=== PATIENT | female | born 2000 | race African-American/Black ===

== ENCOUNTER 2018-07-26 10:28 | Emergency (ER) | payer SELFPAY ==
[2018-07-26 10:48] VITALS: BP 119/73
--- NOTE | 2018-07-26 11:22 | ER Document Report ---
HPI - HPI Patient complains to provider of: Ear ringing feeling clogged Time Seen by Provider: 07/26/18 11:07 Onset: Last week Pain Level: 3 Context: She presents emergency department with complaints of feeling like her ears are clogged ringing. She denies other symptoms such as fever vomiting diarrhea. Reports she has not been swimming. She reports she used a Q-tip last week. Denies trauma denies loud music she just moved here from [place] Associated Symptoms: None Exacerbated by: Denies Relieved by: Denies Similar symptoms previously: No Recently seen / treated by doctor: No Past Medical History - General Information source: Patient Last Menstrual Period: june - Social History Smoking Status: Unknown if Ever Smoked Cigarette use (# per day): No Frequency of alcohol use: None Drug Abuse: None Occupation: unemployed Family History: None Patient has suicidal ideation: No Patient has homicidal ideation: No - Medical History Medical History: Negative Surgical Hx: Negative Vertical Provider Document - CONSTITUTIONAL Agree With Documented VS: Yes Exam Limitations: No Limitations General Appearance: WD/WN, No Apparent Distress - INFECTION CONTROL TRAVEL OUTSIDE OF THE [place] IN LAST 30 DAYS: No - HEENT HEENT: Atraumatic, Normocephalic. negative: Conjuctival Injection, Pharyngeal Exudate, Pharyngeal Erythema, Tympanic Membrane Red - Clear no earwax, Tympanic Membrane Bulging - NECK Neck: Normal Inspection, Supple. negative: Lymphadenopathy-Left, Lymphadenopathy-Right - RESPIRATORY Respiratory: Breath Sounds Normal, No Respiratory Distress - CARDIOVASCULAR Cardiovascular: Regular Rate, Regular Rhythm - GI/ABDOMEN Gastrointestinal: Abdomen Soft, Abdomen Non-Tender - MUSCULOSKELETAL/EXTREMETIES Musculoskeletal/Extremeties: MAEW, FROM - NEURO Level of Consciousness: Awake, Alert, Appropriate Motor/Sensory: No Motor Deficit - DERM Integumentary: Warm, Dry Course - Re-evaluation Re-evalutation: 07/26/18 11:26 Patient instructed on antihistamine decongestant. Patient instructed to follow- up with a primary care provider or ENT for continued symptoms. She verbalized understanding to all instructions. - Vital Signs Vital signs: Temp Pulse Resp BP Pulse Ox 98.8 F 73 16 119/73 98 07/26/18 10:47 07/26/18 10:47 07/26/18 10:47 07/26/18 10:47 07/26/18 10:47 Discharge - Discharge Clinical Impression: ear ringing, clogged ear feeling Condition: Stable Disposition: HOME, SELF-CARE Instructions: Decongestant-Antihistamine Medication ([facility]), ENT Additional Instructions: *You have been evaluated for ear irritation *Follow up with a primary care provider or ENT for continued symptoms within one week *Return to ED for worsening condition, changes, needs
== END 2018-07-26 11:45 | disposition home or self-care (01) ==
LOC: ER 10:28
DX: H93.19 Tinnitus, unspecified ear (principal)
CPT/HCPCS: 99282

== ENCOUNTER 2019-04-23 11:29 | Emergency (ER) | payer SELFPAY ==
[2019-04-23] MEDS ORDERED: LIDOCAINE 1% INJ-PF (10 MG/ML) 30 ML SDV INJ ONE (11:50)
[2019-04-23] MEDS ORDERED: CEFTRIAXONE INJ 250 MG VIAL IM ONE (11:50)
[2019-04-23] MEDS ORDERED: AZITHROMYCIN 250 MG TABLET PO ONE (11:50)
--- NOTE | 2019-04-23 11:52 | ER Document Report ---
HPI - HPI Time Seen by Provider: 04/23/19 11:46 Pain Level: 2 Notes: Patient is a 19-year-old female no significant past medical history who presents complaining of urinary burning, urgency, frequency, and possible yeast infection with vaginal itching over the past 3 days. Patient states that she has had both at the same time in the past and her symptoms feel similar. Patient states that she is open to STD testing, but has a low suspicion. Last menstrual period was 1 to 2 weeks ago. Denies drug allergies. She is able to eat and drink without difficulty. She is urinating normally. No other concerns or complaints. No other vaginal bleeding. Denies any headache, fever, neck pain, URI, sore throat, chest pain, palpitations, syncope, cough, shortness of breath, wheeze, dyspnea, abdominal pain, nausea/vomiting/diarrhea, back pain, or rash. - ROS Systems Reviewed and Negative: Yes All other systems reviewed and negative - REPRODUCTIVE Reproductive: DENIES: : Past Medical History - Social History Smoking Status: Never Smoker Family History: None Vertical Provider Document - CONSTITUTIONAL Agree With Documented VS: Yes Notes: PHYSICAL EXAMINATION: GENERAL: Well-appearing, well-nourished and in no acute distress. LUNGS: Breath sounds clear to auscultation bilaterally and equal. No wheezes rales or rhonchi. HEART: Regular rate and rhythm without murmurs, rubs, gallops. ABDOMEN: Soft, nontender, nondistended abdomen. No guarding, no rebound. Normal bowel sounds present. No CVA tenderness bilaterally. : deferred. pt declined and will self-swab. No tenderness to palp otherwise to lower pelvic. Musculoskeletal: FROM to passive/active. Strength 5+/5. Extremities: No cyanosis, clubbing, or edema b/l. Peripheral pulses 2+. Capillary refill less than 3 seconds. NEUROLOGICAL: Normal speech, normal gait. PSYCH: Normal mood, normal affect. SKIN: Warm, Dry, normal turgor, no rashes or lesions noted. - INFECTION CONTROL TRAVEL OUTSIDE OF THE [place] IN LAST 30 DAYS: No Course - Re-evaluation Re-evalutation: 04/23/19 12:45 Patient is an afebrile, well-hydrated, 19-year-old female who presents to the ED with BV and dysuria. Vitals are acceptable without any significant tachycardia, tachypnea, or hypoxia. PE is otherwise unremarkable. Pt's abd is soft and nontender. Urinalysis and hCG are unremarkable for any acute pathology. See wet mount results. Chlam/gonorrhea tests are pending. Pt received zithromax/rocephin. Patient is nontoxic-appearing is tolerating p.o. without any difficulties. No other labs or imaging warranted at this time based on H&P. Low suspicion/risk for acute appendicitis, bowel obstruction, acute cholecystitis, acute cholangitis, perforated diverticulitis, incarcerated hernia, pancreatitis, perforated ulcer, peritonitis, sepsis, pelvic inflammatory disease, ectopic , tubo-ovarian abscess, ovarian torsion, or other systemic emergent condition at this time. Patient is aware that her condition can change from initial presentation and she needs to monitor symptoms closely and seek medical attention if any acute changes. I will send her home with prescription for Flagyl. Conservative measures otherwise for symptoms. Recheck with your PCM/OBGYN in 3-5 days. Return to the ED with any worsening/concerning symptoms otherwise as reviewed in discharge. Patient is in agreement. Discharge - Discharge Clinical Impression: BV (bacterial vaginosis) Condition: Stable Disposition: HOME, SELF-CARE Instructions: Metronidazole ([facility]), Vaginosis, Bacterial ([facility]) Additional Instructions: Maintain fluid intake Proper hygienic technique Keep the skin clean Safe sexual practices with condoms everytime Tylenol/ibuprofen as needed Check in with the health department this week for further testing if warranted Your chlamydia/gonorrhea tests are pending and you will be notified if positive results; you may call in 1 day for the results as well F/u with your PCM/OBGYN in 3-5 days for a recheck Return to the ED with any development of NOLAND/fever, trouble with vision, eye redness, worsening pain, urethral discharge, urinary retention, blood in the urine, flank pain, abdominal pain, n/v, Chest Pain, shortness of breath, joint pains, trouble breathing, or any other worsening/concerning symptoms as needed otherwise. Prescriptions: Metronidazole [Flagyl] 500 mg PO BID #14 tablet Referrals: [facility] [Provider Group] - Follow up as needed
[2019-04-23 12:24] LABS: T.VAGINALIS (WET MOUNT) NO TRICHOMONAS SEEN; YEAST (WET MOUNT) NO YEAST SEEN
[2019-04-23 12:25] LABS: BACTERIA (WET MOUNT) 3+ BACTERIA SEEN; EPITHELIALS (WET MOUNT) 3+ EPITHELIALS SEEN; RBCS (WET MOUNT) 1+ RBCS SEEN; WBCS (WET MOUNT) 1+ WBCS SEEN
[2019-04-23 12:39] LABS: APPEARANCE,URINE SLIGHTLY-CLOUDY; BILIRUBIN,URINE NEGATIVE (NEGATIVE); COLOR,URINE YELLOW; GLUCOSE, URINE NEGATIVE (NEGATIVE); KETONES,URINE TRACE mg/dL (NEGATIVE); LEUKOCYTE ESTERASE,URINE NEGATIVE (NEGATIVE); NITRITE,URINE NEGATIVE (NEGATIVE); PROTEIN,URINE NEGATIVE (NEGATIVE); URINE SPECIFIC GRAVITY 1.025; UROBILINOGEN,URINE NEGATIVE mg/dL (<2.0)
[2019-04-23 12:48] VITALS: BP 114/63
[2019-04-23 13:56] LABS: CHLAM PCR NOT DETECTED (NOT DETECT)
== END 2019-04-23 12:57 | disposition home or self-care (01) ==
LOC: ER 11:29
DX: N76.0 Acute vaginitis (principal); B96.89 Other specified bacterial agents as the cause of diseases classified elsewhere; R30.0 Dysuria
CPT/HCPCS: 99283; 87086; 87210; 81025; 81001; 87491; 87591; J3490; J0696

== ENCOUNTER 2019-04-29 10:26 | Emergency (ER) | payer SELFPAY ==
--- NOTE | 2019-04-29 10:55 | ER Document Report ---
ED Medical Screen (RME) - General Chief Complaint: Vaginal Pain Stated Complaint: VAGINAL PAIN Time Seen by Provider: 04/29/19 10:53 Notes: Patient is a 19-year-old female presents to the emergency department with a chief complaint of vaginal irritation. Patient states she was seen here last week and diagnosed with bacterial vaginosis. She states she was placed on Flagyl which she did take for 5 days. Patient states that she felt like she had increased anxiety and tingling throughout her body so she stopped taking the medication yesterday. Patient states she has had feelings of anxiety in the past but it got worse after starting the Flagyl. Patient states she continues to have vaginal irritation with thick white vaginal discharge. She denies an odor. She states she does have some irritation with urination. Patient states she is sexually active and was tested for gonorrhea and chlamydia last week and was negative. TRAVEL OUTSIDE OF THE [place] IN LAST 30 DAYS: No - Related Data Allergies/Adverse Reactions: No Known Allergies Allergy (Verified 04/23/19 11:31) Past Medical History Renal/ Medical History: Denies: Hx Peritoneal Dialysis Physical Exam - Vital signs Vitals: Temp Pulse Resp BP Pulse Ox 98.3 F 91 15 117/72 98 04/29/19 10:33 04/29/19 10:33 04/29/19 10:33 04/29/19 10:33 04/29/19 10:33 Interpretation: Normal Course - Re-evaluation Re-evalutation: 04/29/19 10:55 I have greeted and performed a rapid initial assessment of this patient. A comprehensive ED assessment and evaluation of the patient, analysis of test results and completion of the medical decision making process will be conducted by additional ED providers. - Vital Signs Vital signs: Temp Pulse Resp BP Pulse Ox 98.3 F 91 15 117/72 98 04/29/19 10:33 04/29/19 10:33 04/29/19 10:33 04/29/19 10:33 04/29/19 10:33
--- NOTE | 2019-04-29 11:19 | ER Document Report ---
HPI - HPI Patient complains to provider of: anxiety, fatigue Time Seen by Provider: 04/29/19 10:53 Onset: Other - 5 days Onset/Duration: Waxing and waning Quality of pain: Achy Pain Level: 4 Context: Patient presents complaining of anxiety and insomnia. Patient states that the daytime she feels tired. Patient states that she was recently seen here treated for it back till vaginosis with Flagyl and thinks that the medication is causing her symptoms. Patient does admit to a history of anxiety in the past although is not currently taking any medications to treat this. Patient also complains of some tenderness to left groin area. Patient denies any abdominal pain, vaginal bleeding, or swelling to the perineum. Patient denies any suicidal or homicidal ideation. Patient does complain of increased stress due to not having a job and living at home with her parents. Associated Symptoms: Other - Left inguinal pain, insomnia, daytime fatigue. denies: Nonproductive cough, Productive cough, Fever Exacerbated by: Denies Relieved by: Denies Similar symptoms previously: Yes - anxiety Recently seen / treated by doctor: Yes - ROS ROS below otherwise negative: Yes Systems Reviewed and Negative: Yes All other systems reviewed and negative - CONSTITUTIONAL Constitutional: DENIES: Fever, Chills - EENT EENT: DENIES: Sore Throat - RESPIRATORY Respiratory: DENIES: Coughing - GASTROINTESTINAL Gastrointestinal: DENIES: Abdominal Pain, Nausea, Patient vomiting - URINARY Urinary: DENIES: Dysuria, Urgency - REPRODUCTIVE Reproductive: DENIES: : - MUSCULOSKELETAL Musculoskeletal: DENIES: Back Pain - DERM Skin Color: Normal Skin Problems: None Past Medical History - General Information source: Patient - Social History Smoking Status: Never Smoker Frequency of alcohol use: None Drug Abuse: None Occupation: none Lives with: Family Family History: None Patient has suicidal ideation: No Patient has homicidal ideation: No Renal/ Medical History: Denies: Hx Peritoneal Dialysis Psychiatric Medical History: Reports: Hx Anxiety Surgical Hx: Negative Vertical Provider Document - CONSTITUTIONAL Agree With Documented VS: Yes Exam Limitations: No Limitations General Appearance: WD/WN, No Apparent Distress - INFECTION CONTROL TRAVEL OUTSIDE OF THE [place] IN LAST 30 DAYS: No - HEENT HEENT: Atraumatic, Normal ENT Exam, Normocephalic - NECK Neck: Normal Inspection, Supple - RESPIRATORY Respiratory: Breath Sounds Normal, No Respiratory Distress - CARDIOVASCULAR Cardiovascular: Regular Rate, Regular Rhythm - GI/ABDOMEN Gastrointestinal: Abdomen Soft, Abdomen Non-Tender - REPRODUCTIVE Female Genitalia: Normal Inspection - BACK Back: Normal Inspection. negative: CVA Tenderness-Right, CVA Tenderness-Left Notes: Patient with tenderness to left lower groin area, no labial tenderness, no Bartholin gland abscess, no perianal abscess or induration. - MUSCULOSKELETAL/EXTREMETIES Musculoskeletal/Extremeties: DWIGHT CONTRERAS - NEURO Level of Consciousness: Awake, Alert, Appropriate Motor/Sensory: No Motor Deficit - DERM Integumentary: Warm, Dry, No Rash Course - Re-evaluation Re-evalutation: 04/29/19 11:17 Patient with a left perineal tenderness, normal skin color and temperature overlying this area. No induration no palpable swelling. No concern for abscess. No evidence of the Bartholin gland abscess or perianal abscess. Patient encouraged to put warm compresses to the area. Patient had been seen 6 days ago for vaginal discharge and treated appropriately for BV. Patient also reports anxiety and does report a previous history of anxiety although is not currently taking any medications to treat her anxiety symptoms. Patient thought that may be the medication she had been on to treat BV was worsening her anxiety symptoms. Patient has had insomnia and daytime fatigue. Patient is having some distress over being 19, living at home and having a job. Patient denies any suicidal or homicidal ideation. - Vital Signs Vital signs: Temp Pulse Resp BP Pulse Ox 98.3 F 91 15 117/72 98 04/29/19 10:33 04/29/19 10:33 04/29/19 10:33 04/29/19 10:33 04/29/19 10:33 Discharge - Discharge Clinical Impression: Anxiety, Inguinal tenderness Condition: Stable Disposition: HOME, SELF-CARE Instructions: Acetaminophen, Anxiety ([facility]) Additional Instructions: Return immediately for any new or worsening symptoms: Increase in pain, fever, drainage, any swelling or change in appearance of the skin overlying the area that is tender. Followup with your primary care provider, call tomorrow to make a followup appointment Take Tylenol [id number] for your pain symptoms. Apply warm compresses to the area. Prescriptions: Hydroxyzine HCl [Atarax 25 mg Tablet] 2 tab PO QHS PRN #12 tablet PRN Reason: Naproxen [Naprosyn 250 Nmg Tablet] 1 tab PO BID #14 tablet Referrals: [facility] [Provider Group] - Follow up as needed [facility] [Provider Group] - Follow up as needed [facility] [Provider Group] - Follow up as needed
[2019-04-29 11:41] VITALS: BP 112/74
== END 2019-04-29 11:44 | disposition home or self-care (01) ==
LOC: ER 10:26
DX: F41.9 Anxiety disorder, unspecified (principal); R10.814 Left lower quadrant abdominal tenderness; R53.83 Other fatigue; G47.00 Insomnia, unspecified; R10.32 Left lower quadrant pain
CPT/HCPCS: 99283

== ENCOUNTER 2019-05-20 13:59 | Emergency (ER) | payer SELFPAY ==
[2019-05-20 14:05] VITALS: BP 126/76
== END 2019-05-20 14:40 | disposition left against medical advice (07) ==
LOC: ER 13:59
DX: Z53.21 Procedure and treatment not carried out due to patient leaving prior to being seen by health care provider (principal)